=== PATIENT | female | born 1985 | race Caucasian/White ===

== ENCOUNTER → 2018-05-14 | Outpatient (CLI) | payer BC ==
--- NOTE | 2018-05-14 11:51 | US ---
EXAMINATION TYPE: US venous Doppler duplex LE LT DATE OF EXAM: 05/14/2018 11:39 AM COMPARISON: NONE CLINICAL HISTORY: M79.662 Pain In Limb. Patient denies leg swelling; left upper calf pain x 2 days; 3 rd trimester SIDE PERFORMED: Left TECHNIQUE: The lower extremity deep venous system is examined utilizing real time linear array sonog robin with graded compression, Doppler sonography and color-flow sonography. VESSELS IMAGED: Common Femoral Vein Deep Femoral Vein Greater Saphenous Vein * Femoral Vein Popliteal Vein Small Saphenous Vein * Proximal Calf Veins (* superficial vessels) Grayscale, color Doppler, spectral Doppler imaging performed of the deep veins of the left lower extr emity. There is normal flow, compressibility, vascular waveforms. Left Leg: Negative for DVT IMPRESSION: No sonographic evidence of deep venous thrombosis within the left lower extremity.
== END | disposition home or self-care (01) ==
LOC: RADUSWWP 11:18
PROVIDERS: ATTEND Obstetrics & Gynecology Obstetrics
DX: M79.662 Pain in left lower leg (principal)

== ENCOUNTER 2018-06-04 18:59 | Inpatient (IN) | payer BC ==
[2018-06-04] MEDS: LACTATED RINGERS 1,000 ML IV SCH (19:46)
[2018-06-04 19:59] LABS: Glucose,Whole Blood 95 mg/dL (75-99)
[2018-06-04 20:05] LABS: Basophils % (A) 0 %; Eosinophils # (A) 0.2 k/uL (0-0.7); Eosinophils % (A) 1 %; HCT 38.9 % (34.0-46.0); HGB 12.8 gm/dL (11.4-16.0); Lymphocytes # (A) 1.3 k/uL (1.0-4.8); Lymphocytes % (A) 12 %; MCHC 32.9 g/dL (31.0-37.0); MCV 87.9 fL (80.0-100.0); Mean Platelet Volume 7.9; Monocytes # (A) 0.7 k/uL (0-1.0); Monocytes % (A) 6 %; Neutrophils # (A) 8.9 k/uL (1.3-7.7); Neutrophils % (A) 79 %; Platelet Count 220 k/uL (150-450); RBC 4.43 m/uL (3.80-5.40); RDW 13.7 % (11.5-15.5); WBC 11.2 k/uL (3.8-10.6)
[2018-06-04 20:31] VITALS: BMI 31.8
[2018-06-04] MEDS ORDERED: LIDOCAINE 0.5% (PF) 5 MG/ML (50 ML SDV) SQ PRN (20:31)
[2018-06-04] MEDS ORDERED: OXYTOCIN 10 UNIT/ML 1 ML VIAL IM PRN (20:31)
[2018-06-04] MEDS ORDERED: TERBUTALINE 1 MG/ML VIAL SQ PRN (20:31)
[2018-06-04] MEDS ORDERED: METHYLERGONOVINE 0.2 MG/ML 1 ML AMP IM PRN (20:31)
[2018-06-04] MEDS ORDERED: CARBOPROST TROMETHAMINE 250 MCG/ML 1 ML AMP IM PRN (20:31)
[2018-06-04] MEDS: CLINDAMYCIN 900 MG in DEXTROSE 5% IN WATER 50 ML IVPB SCH ×2 (23:57)
[2018-06-05] MEDS ORDERED: BUTORPHANOL 1 MG/ML 1 ML VIAL IV PRN (00:19)
[2018-06-05] MEDS ORDERED: SODIUM CHLORIDE 0.9% 100 ML BAG ONE (02:10)
[2018-06-05] MEDS ORDERED: fentaNYL (PF) 50 MCG/ML 5 ML AMP ONE (02:10)
[2018-06-05] MEDS ORDERED: ROPIVACAINE 5MG/ML 20ML VIAL ONE (02:10)
[2018-06-05] MEDS: LACTATED RINGERS 1,000 ML IV SCH ×3 (02:28→08:02)
[2018-06-05] MEDS: OXYTOCIN 20 UNITS/1000 ML NS 1,000 ML IV SCH ×2 (05:00→13:34)
[2018-06-05] MEDS: CLINDAMYCIN 900 MG in DEXTROSE 5% IN WATER 50 ML IVPB SCH ×2 (08:00)
[2018-06-05] MEDS ORDERED: SIMETHICONE 80 MG CHEWABLE PO PRN (12:14)
[2018-06-05] MEDS ORDERED: diphenhydrAMINE 50 MG/ML 1 ML VIAL IVP PRN ×2 (12:14)
[2018-06-05] MEDS ORDERED: BENZOCAINE/MENTHOL SPRAY 1 GM/SPRAY AEROSOL TOPICAL PRN (12:14)
[2018-06-05] MEDS ORDERED: diphenhydrAMINE 50 MG CAP PO PRN (12:14)
[2018-06-05] MEDS ORDERED: diphenhydrAMINE 25 MG CAP PO PRN (12:14)
[2018-06-05] MEDS ORDERED: ACETAMINOPHEN TAB 325 MG TAB PO PRN (12:14)
[2018-06-05] MEDS ORDERED: ZOLPIDEM 5 MG TAB PO PRN (12:14)
[2018-06-05] MEDS ORDERED: LANOLIN CREAM 5 GM TUBE TOPICAL PRN (12:14)
[2018-06-05] MEDS ORDERED: WITCH HAZEL 1 EACH MED..PAD TOPICAL PRN (12:14)
[2018-06-05] MEDS ORDERED: HYDROCORTISONE 2.5% RECTAL CREAM 30 GM TUBE RECTAL PRN (12:14)
[2018-06-05] MEDS ORDERED: OXYTOCIN 20 UNITS/1000 ML NS 1,000 ML IV SCH (12:15)
--- NOTE | 2018-06-05 12:20 | P.HPOB ---
History of Present Illness H&P Date: 06/05/18 Chief Complaint: IUP at 40-3/7 weeks, spontaneous rupture of membranes This is a 32-year-old 1 para 0 at 40-3/7 weeks that presented to labor and delivery on 06/04 with complaints of spontaneous rupture of membranes, amnio sure was possibly patient was admitted to labor and delivery. Patient noted fluid to be clear in nature upon rupture of membranes. patient has been seeing receiving routine care with myself since the first trimester. On blood work she developed of A+, rubella immune, hepatitis B surface antigen negative, group beta strep was negative in addition. Patient's was complicated by gestational diabetes for which she was diet controlled. Review of Systems Constitutional: Denies chills, Denies fatigue, Denies fever Ears, nose, mouth and throat: Denies headache Cardiovascular: Reports edema, Reports leg edema Respiratory: Denies cough, Denies dyspnea Gastrointestinal: Denies constipation, Denies diarrhea, Denies nausea, Denies vomiting Genitourinary: Reports Past Medical History Additional Past Medical History / Comment(s): chronic migraines History of Any Multi-Drug Resistant Organisms: None Reported Past Surgical History: No Surgical Hx Reported Past Anesthesia/Blood Transfusion Reactions: No Reported Reaction Past Psychological History: No Psychological Hx Reported Smoking Status: Never smoker Past Alcohol Use History: None Reported Past Drug Use History: None Reported - Past Family History Father Family Medical History: Diabetes Mellitus Additional Family Medical History / Comment(s): type 2 Medications and Allergies Home Medications Medication Instructions Recorded Confirmed Type No Known Home Medications 06/04/18 06/04/18 History Allergies Allergy/AdvReac Type Severity Reaction Status Date / Time Penicillins Allergy Rash/Hives Verified 06/04/18 19:40 Exam Osteopathic Statement: *. No significant issues noted on an osteopathic structural exam other than those noted in the History and Physical/Consult. Vital Signs Temp Pulse Resp BP Pulse Ox 06/04/18 19:39 99.2 F 108 H 16 130/77 95 06/04/18 19:30 99.1 F 92 16 130/77 96 Intake and Output 06/04/18 06/05/18 06/05/18 22:59 06:59 14:59 Intake Total 1050 Balance 1050 Intake: Intake, IV Titration 1050 Amount Clindamycin 900 mg In 50 Dextrose 5% in Water 50 ml @ 50 mls/hr IVPB Q8HR [facility] Rx#:[id number] Lactated Ringers 1,000 ml 1000 @ 125 mls/hr IV .Q8H [facility] Rx#:[id number] Other: # Voids 1 2 Weight 74.389 kg Targeted physical exam was performed patient was noted in general to be a well- nourished well-developed gravid female in no acute distress. Heart was noted have regular rate and rhythm, lungs were clear auscultation bilaterally, and abdomen was gravid. heart tones noted to be reactive. On cervical exam she was noted to be grossly ruptured and vertex presentation. - OBG Physical Exam Uterus: enlarged Results Result Diagrams: 06/04/18 19:54 Abnormal Lab Results - Last 24 Hours (Table) 06/04/18 Range/Units 19:54 WBC 11.2 H (3.8-10.6) k/uL Neutrophils # 8.9 H (1.3-7.7) k/uL Assessment and Plan (1) Term Current Visit: Yes Status: Acute Code(s): Z34.80 - ENCOUNTER FOR SUPRVSN OF NORMAL , UNSP TRIMESTER SNOMED Code(s): 84910605 (2) Post-dates Current Visit: Yes Status: Acute Code(s): O48.0 - POST-TERM SNOMED Code(s): 05222021 (3) SROM (spontaneous rupture of membranes) Current Visit: Yes Status: Acute Code(s): DHN0128 - SNOMED Code(s): 184701656 Plan: Patient noted to labor and delivery for expectant management, Pitocin augmentation of labor is discussed if necessary. Patient does desire epidural when uncomfortable. Anticipate spontaneous vaginal delivery.
--- NOTE | 2018-06-05 12:22 | P.PROBDLV ---
Vaginal Delivery Note - . Vaginal Delivery Note: This is a very pleasant 32-year-old 1 para 0 at 40-3/7 weeks that presented to labor and delivery in 06/04 with complaints of spontaneous rupture of membranes, clear in nature. Patient was only irregular contractions at the time. Patient was admitted to labor and delivery for expectant management. Patient was started on Pitocin augmentation of labor on 5 AM was noted to be about 5 cm at the time. Patient had requested epidural around the same time in addition. This epidural was placed by anesthesia without difficulty. Patient progressed through labor eventually becoming complete, patient began pushing and station was noted to be . Patient was unable to push the passed to stage secondary to maternal exhaustion. Therefore vacuum assist vaginal delivery was performed. Informed consent was obtained prior to vacuum placement from a mom and dad. The vacuum was applied with careful attention to the sutures, pressure was applied with a contraction only after 2 pulls infant was delivered. A viable male infant was delivered at 1152 , weight of 8 lbs. 5 oz. and Apgars of 9 and 9 at one and 5 minutes respectively. After a two-minute delayed the cord was doubly clamped and cut and the placenta was delivered spontaneously intact with a three-vessel cord. On inspection the patient's vaginal vault a second-degree midline vaginal laceration was noted. This vaginal laceration was repaired in the usual fashion with 3-0 Rapide. On further inspection of the patient's vaginal vault no further lacerations that required repair were noted. Rectal exam was performed and the rectum was noted to be intact with no abnormalities being noted. Estimated blood loss 400 mL Mother and tolerated delivery well and are resting comfortably.
[2018-06-05] MEDS: IBUPROFEN 600 MG TAB PO PRN ×2 (13:33→20:41)
[2018-06-05 16:18] LABS: Hemoglobin A1C 5.4 % (4.0-6.0)
[2018-06-05] MEDS ORDERED: SENNOSIDES-DOCUSATE SODIUM 1 EACH TAB PO SCH (20:00)
[2018-06-06 07:54] LABS: Basophils % (A) 0 %; Eosinophils % (A) 0 %; HCT 26.2 % (34.0-46.0); Lymphocytes % (A) 13 %; MCH 29.9 pg (25.0-35.0); MCHC 33.7 g/dL (31.0-37.0); MCV 88.7 fL (80.0-100.0); Mean Platelet Volume 7.8; Monocytes # (A) 0.7 k/uL (0-1.0); Monocytes % (A) 5 %; Neutrophils % (A) 80 %; Platelet Count 192 k/uL (150-450); RBC 2.95 m/uL (3.80-5.40); RDW 13.8 % (11.5-15.5)
[2018-06-06 08:02] LABS: HGB 8.8 gm/dL (11.4-16.0)
[2018-06-06 08:07] VITALS: BP 111/72; PULSE 103; RESP 16; TEMP 97
--- NOTE | 2018-06-06 10:49 | P.DS ---
Providers Date of admission: 06/04/18 19:26 Expected date of discharge: 06/06/18 Attending physician: Janet Velásquez Primary care physician: Sylvia Vasquez - Discharge Diagnosis(es) (1) Vacuum extraction, delivered, current hospitalization Current Visit: Yes Status: Acute (2) Post-dates Current Visit: Yes Status: Acute (3) SROM (spontaneous rupture of membranes) Current Visit: Yes Status: Acute (4) Perineal laceration with delivery, second degree Current Visit: Yes Status: Acute Hospital Course: This is a 32-year-old 1 now para 1 woman who presented at 40-3/7 weeks gestation with spontaneous rupture of membranes. She on was initiated on Pitocin augmentation and progressed through the first stage of labor. She did receive an epidural anesthetic. She had an uncomplicated second stage however vacuum assisted delivery was performed secondary to maternal exhaustion. She was delivered of a male weighing 8 lbs. 5 oz. with Apgars of 9 at 1 minute and 9 at 5 minutes over second-degree perineal laceration. Please see the delivery summary for details. Patient's post course was unremarkable. By day #1 she was ambulating and voiding without difficulty. Her lochia was decreasing. She had some mild pain at her incision site but this was tolerated with ibuprofen and ice. Her vital signs were stable. She was therefore discharged home with routine instructions for care and follow-up. Plan - Discharge Summary New Discharge Prescriptions: No Action No Known Home Medications Discharge Medication List No Known Home Medications 06/04/18 [History] Follow up Appointment(s)/Referral(s): Janet Velásquez DO [Doctor of Osteopathic Medicine] - 4 Weeks Activity/Diet/Wound Care/Special Instructions: Follow-up in the office in 6 weeks . Call with any concerning signs or symptoms including heavy vaginal bleeding, severe abdominal pain, fever greater than 101, swelling or redness of the lower extremities, foul vaginal discharge, or signs of depression. Nothing in the vagina for 6 weeks after delivery, specifically no intercourse. Discharge Disposition: HOME SELF-CARE
== END 2018-06-06 14:04 | disposition home or self-care (01) | DRG 806 ==
LOC: FBPOP 18:59 → 4FBP 19:26
PROVIDERS: ADMIT Obstetrics & Gynecology; ATTEND Obstetrics & Gynecology Obstetrics
PROC: 10D07Z6 Extraction of Products of Conception, Vacuum, Via Natural or Artificial Opening (ICD-10-PCS; principal; 2018-06-05)
PROC: 0KQM0ZZ Repair Perineum Muscle, Open Approach (ICD-10-PCS; 2018-06-05)
PROC: 00HU33Z Insertion of Infusion Device into Spinal Canal, Percutaneous Approach (ICD-10-PCS; 2018-06-05)
PROC: 3E0R3BZ Introduction of Anesthetic Agent into Spinal Canal, Percutaneous Approach (ICD-10-PCS; 2018-06-05)
DX: O48.0 Post-term pregnancy (principal); O99.354 Diseases of the nervous system complicating childbirth; Z37.0 Single live birth; O71.4 Obstetric high vaginal laceration alone; O24.420 Gestational diabetes mellitus in childbirth, diet controlled; O75.81 Maternal exhaustion complicating labor and delivery; G43.909 Migraine, unspecified, not intractable, without status migrainosus; Z88.0 Allergy status to penicillin; Z3A.40 40 weeks gestation of pregnancy; Z83.3 Family history of diabetes mellitus
CPT/HCPCS: 83036; 85025; 86850; 86900; 86901

== ENCOUNTER → 2023-03-27 | Outpatient (CLI) | payer BC | END | disposition home or self-care (01) | LOC: LABWHC1 08:16 | PROVIDERS: ATTEND Family Medicine | DX: R10.84 Generalized abdominal pain (principal) | CPT/HCPCS: 36415; 83690 ==

== ENCOUNTER 2024-10-05 13:56 | Outpatient (CLI) | payer BC ==
[2024-10-05 14:48] VITALS: BP 124/84; PULSE 96; RESP 17; TEMP 96.9
--- NOTE | 2024-10-28 20:38 | P.MSEPDOC ---
Presenting Problems - Arrival Data Date of Arrival on Unit: 10/05/24 Time of Arrival on Unit: 13:56 Mode of Transport: Ambulatory - Complaint OB-Reason for Admission/Chief Complaint: Decreased Movement Medical History - Information : 2 Para: 1 Term: 1 : 0 Abortions: Spontaneous or Elective: 0 Number of Living Children: 1 - Gestational Age Gestational Age by KYRIE (wks/days): 35 Weeks and 5 Days Review of Systems - Review of Systems Constitutional: No problems Breast: No problems ENT: No problems Cardiovascular: No problems Respiratory: No problems Gastrointestinal: No problems Genitourinary: No problems Musculoskeletal: No problems Neurological: No problems Skin: No problems Vital Signs - Temperature Temperature: 96.9 F Temperature Source: Temporal Artery Scan - Pulse Right Brachial Pulse Rate: 96 Pulse Assessment Method: Automatic Cuff - Respirations Respiratory Rate: 17 Oxygen Delivery Method: Room Air O2 Sat by Pulse Oximetry: 98 - Blood Pressure Right Arm Blood Pressure: 124/84 Blood Pressure Mean: 97 Blood Pressure Source: Automatic Cuff Medical Screen Scoring - Assessment - Baby A Baseline FHR: 145 Heart Rate - NICHD Category: Category I (Normal) NST: Reactive Physician Notification - Physician Notified Physician Notified Date: 10/05/24 Physician Notified Time: 14:33 Physician: Janet Velásquez New Order Received: Yes - Notification Comment Comment: Dr. Velásquez called and given report on pt. Pt c/o. Reactive NST. FM felt per pt and noted audibly. VS WNL. Orders received to d/c pt to home. Pt reports apt on 10/07. Maternal Triage Index - Urgent/Priority 2 Urgent Priority 2: Yes Provider Notified: Janet Velásquez Provider Notified Time: 14:33 Criteria Met for Priority 2: Dr. Velásquez called and given report on pt. Pt c/o. Reactive NST. FM felt per pt and noted audibly. VS WNL. Orders received to d/c pt to home. Pt reports apt on 10/07. Disposition - Disposition OB Disposition: Discharge to home Discharge Date: 10/05/24 Discharge Time: 14:43 I agree with the RN Medical Screening Exam: Yes Case reviewed; plan agreed upon as documented in EMR&OBIX.: Yes Diagnosis: RELATED CONDITIONS, UNSPECIFIED, THIRD TRIMESTER
== END 2024-10-05 14:43 | disposition home or self-care (01) ==
LOC: FBPOP 13:56
PROVIDERS: ATTEND Obstetrics & Gynecology Obstetrics
DX: O26.93 Pregnancy related conditions, unspecified, third trimester (principal); Z88.0 Allergy status to penicillin; Z3A.35 35 weeks gestation of pregnancy
CPT/HCPCS: 59025; 99213

== ENCOUNTER 2024-10-20 06:00 | Inpatient (IN) | payer BC ==
[2024-10-20] MEDS ORDERED: miSOPROStoL 200 MCG TAB RECTAL PRN (06:26)
[2024-10-20] MEDS ORDERED: OXYTOCIN 10 UNIT/ML 1 ML VIAL IM PRN (06:26)
[2024-10-20] MEDS ORDERED: miSOPROStoL 200 MCG TAB PO PRN (06:26)
[2024-10-20] MEDS ORDERED: TERBUTALINE 1 MG/ML VIAL SQ PRN (06:26)
[2024-10-20] MEDS ORDERED: METHYLERGONOVINE 0.2 MG/ML 1 ML AMP IM PRN (06:26)
[2024-10-20] MEDS ORDERED: CARBOPROST TROMETHAMINE 250 MCG/ML 1 ML AMP IM PRN (06:26)
[2024-10-20] MEDS ORDERED: TRANEXAMIC 1,000 MG/100ML-NACL 1,000 MG in EMPTY BAG 1 BAG IV PRN (06:26)
[2024-10-20] MEDS ORDERED: LIDOCAINE 0.5% (PF) 5 MG/ML (50 ML SDV) SQ PRN (06:26)
[2024-10-20] MEDS: LACTATED RINGERS 1,000 ML IV SCH (06:35)
[2024-10-20 06:52] LABS: Basophils # (A) 0.1 k/uL (0-0.2); Basophils % (A) 1 %; Eosinophils # (A) 0.1 k/uL (0-0.7); Eosinophils % (A) 1 %; HCT 38.5 % (34.0-46.0); HGB 12.4 gm/dL (11.4-16.0); Lymphocytes # (A) 1.8 k/uL (1.0-4.8); Lymphocytes % (A) 19 %; MCH 27.9 pg (25.0-35.0); MCHC 32.3 g/dL (31.0-37.0); MCV 86.6 fL (80.0-100.0); Mean Platelet Volume 8.7; Monocytes # (A) 0.6 k/uL (0-1.0); Monocytes % (A) 6 %; Neutrophils # (A) 6.9 k/uL (1.3-7.7); Neutrophils % (A) 71 %; Platelet Count 303 k/uL (150-450); RBC 4.45 m/uL (3.80-5.40); RDW 14.1 % (11.5-15.5); WBC 9.7 k/uL (3.8-10.6)
[2024-10-20] MEDS: OXYTOCIN 30 UNITS/500 ML NS 30 UNIT in SALINE 1 500ML.BAG IV SCH (07:22)
[2024-10-20] MEDS ORDERED: diphenhydrAMINE 25 MG CAP PO PRN (11:40)
[2024-10-20] MEDS ORDERED: LANOLIN CREAM 1 GM TUBE TOPICAL PRN (11:40)
[2024-10-20] MEDS ORDERED: diphenhydrAMINE 50 MG/ML 1 ML VIAL IVP PRN ×2 (11:40)
[2024-10-20] MEDS ORDERED: diphenhydrAMINE 50 MG CAP PO PRN (11:40)
[2024-10-20] MEDS ORDERED: SIMETHICONE 80 MG CHEWABLE PO PRN (11:40)
[2024-10-20] MEDS ORDERED: ZOLPIDEM 5 MG TAB PO PRN (11:40)
[2024-10-20] MEDS ORDERED: BENZOCAINE/MENTHOL SPRAY 1 GM/SPRAY AEROSOL TOPICAL PRN (11:40)
[2024-10-20] MEDS ORDERED: HYDROCORTISONE 2.5% RECTAL CREAM 30 GM TUBE RECTAL PRN (11:40)
--- NOTE | 2024-10-20 11:43 | P.PROBDLV ---
Vaginal Delivery Note - . Vaginal Delivery Note: Date of service 10/20/2024 Findings viable female infant delivered at 1129. 39-year-old G2, P1 at 37-6/7 weeks that presents to labor and delivery for induction secondary to advanced cervical dilation. Patient was admitted and amniotomy was performed. Patient was noted to be 7 cm upon admission. Clear fluid was obtained upon amniotomy. Patient progressed through labor becoming uncomfortable and requesting nitrous. Nitrous was used just prior to complete dilation. Once completely dilated she began pushing and had a normal spontaneous vaginal delivery of a viable female at 1129, weight is pending. Apgars of 9 and 9 at 1 and 5 minutes respectively. After 2-minute delay the umbilical cord is doubly clamped and cut. Spontaneous cry was noted at . Symptoms delivered spontaneously intact with three-vessel cord being noted. On inspection of patient's vaginal vault no lacerations were appreciated. All counts were to be correct x 2. Uterus is noted to be firm below the umbilicus. Estimated blood loss 150 cc. Patient and infant tolerated delivery well and are resting comfortably.
[2024-10-20] MEDS: PRENATAL VIT-IRON-FOLIC ACID 1 EACH TABLET PO SCH (15:08)
[2024-10-20] MEDS: IBUPROFEN 800 MG TAB PO SCH (15:09)
[2024-10-20] MEDS: ACETAMINOPHEN TAB 500 MG TAB PO SCH (17:48)
[2024-10-21] MEDS: SENNOSIDES-DOCUSATE SODIUM 1 EACH TAB PO SCH (03:26)
[2024-10-21 07:36] VITALS: BP 117/82; PULSE 75; RESP 16; TEMP 97.6
--- NOTE | 2024-10-21 09:11 | P.DS ---
Providers Date of admission: 10/20/24 06:15 Expected date of discharge: 10/21/24 Attending physician: Janet Velásquez Primary care physician: Stated None - Discharge Diagnosis(es) (1) Premature cervical dilation in third trimester Current Visit: Yes Status: Acute (2) Term Current Visit: No Status: Acute (3) Status post normal vaginal delivery Current Visit: Yes Status: Acute Hospital Course: 39-year-old G2 now P2 that presented to labor and delivery at 37-6/7 weeks on 10/20 for induction of labor secondary to advanced cervical dilation. Patient had been receiving routine care which has been essentially uncomplicated. Patient was noted to be 6 cm in the office the day prior. Patient presented to labor and delivery 7 cm dilated. Patient noted occasional contractions. Patient was admitted to labor and delivery and Pitocin induction of labor was begun. Patient underwent amniotomy and clear fluid was obtained. Patient declined analgesia during labor. She did elect to a small amount of nitrous just prior to pushing. Patient began pushing and had a normal spontaneous vaginal delivery of a viable female at 1129, weight of 6 pounds 14 ounces No vaginal lacerations were appreciated after delivery. Patient did well . In this day #1 she is ambulating and voiding without difficulty. She is tolerating regular diet without nausea or vomiting. States her pain is well-controlled Would like discharge home later today. Patient Condition at Discharge: Good Plan - Discharge Summary New Discharge Prescriptions: No Action Vit No.179/Iron/Folic [ Tablet] 1 tab PO ONCE Discharge Medication List Vit No.179/Iron/Folic [ Tablet] 1 tab PO ONCE 10/05/24 [History] Follow up Appointment(s)/Referral(s): Janet Velásquez DO [Doctor of Osteopathic Medicine] - 12/01/24 11:35 am Patient Instructions/Handouts: Vaginal Delivery (DC), Vaginal Delivery (GEN) Activity/Diet/Wound Care/Special Instructions: No tub baths or intercourse until 6 weeks . [id number] ibuprofen 600 mg or 3 tablets every 6 hours as needed for pain. Routine check in 6 weeks Discharge Disposition: HOME SELF-CARE
== END 2024-10-21 13:50 | disposition home or self-care (01) | DRG 807 ==
LOC: 4FBP 06:15
PROVIDERS: ADMIT Obstetrics & Gynecology Obstetrics; ATTEND Obstetrics & Gynecology Obstetrics
PROC: 3E033VJ Introduction of Other Hormone into Peripheral Vein, Percutaneous Approach (ICD-10-PCS; principal; 2024-10-20)
PROC: 10907ZC Drainage of Amniotic Fluid, Therapeutic from Products of Conception, Via Natural or Artificial Opening (ICD-10-PCS; principal; 2024-10-20)
PROC: 10E0XZZ Delivery of Products of Conception, External Approach (ICD-10-PCS; principal; 2024-10-20)
DX: O80 Encounter for full-term uncomplicated delivery (principal); Z3A.37 37 weeks gestation of pregnancy; Z37.0 Single live birth
CPT/HCPCS: 85025; 86850; 86900; 86901